=== PATIENT | female | born 1945 | race Caucasian/White ===

== ENCOUNTER 2021-08-22 07:32 | Day surgery (SDC) | payer OTHER ==
[2021-08-16 11:35] VITALS: BMI 16.8
[2021-08-22 09:06] VITALS: TEMP 97.6
[2021-08-22 09:24] VITALS: BP 100/50; PULSE 63
== END 2021-08-22 09:30 | disposition home or self-care (01) ==
LOC: FASU-ENDO 07:32
PROVIDERS: ATTEND Internal Medicine Gastroenterology
PROC: 0DJD8ZZ Inspection of Lower Intestinal Tract, Via Natural or Artificial Opening Endoscopic (ICD-10-PCS; principal; 2021-08-22 08:40)
DX: Z86.010 Personal history of colon polyps (principal); Z83.71 Family history of colonic polyps